=== PATIENT | female | born 1950 | race Caucasian/White ===

== ENCOUNTER 2019-08-06 09:33 | Emergency (ER) | payer MEDICARE, BC ==
[2019-08-06] MEDS ORDERED: Fentanyl 100 MCG/2 ML VIAL ONE (10:12)
[2019-08-06] MEDS ORDERED: Diazepam 5 MG TAB ONE (10:12)
[2019-08-06] MEDS ORDERED: Dexamethasone 4 mg/ml Vial ONE (10:13)
[2019-08-06] MEDS ORDERED: Ketorolac Tromethamine 60 MG/2 ML VIAL ONE (10:13)
[2019-08-06] MEDS ORDERED: Dexamethasone 4 MG TAB ONE (10:14)
== END 2019-08-06 10:54 | disposition home or self-care (01) ==
LOC: MADERS 09:33
DX: M62.830 Muscle spasm of back (principal); E78.00 Pure hypercholesterolemia, unspecified; E78.5 Hyperlipidemia, unspecified; F32.9 Major depressive disorder, single episode, unspecified; K58.9 Irritable bowel syndrome, unspecified; Z79.891 Long term (current) use of opiate analgesic; Z79.899 Other long term (current) drug therapy
CPT/HCPCS: 96372; 99283; J1100; J1885; J3010; J8540

== ENCOUNTER 2019-11-15 13:13 | Emergency (ER) | payer MEDICARE, BC ==
[2019-11-15] MEDS ORDERED: Ketorolac Tromethamine 30 MG/ML VIAL ONE (13:18)
== END 2019-11-15 14:00 | disposition home or self-care (01) ==
LOC: MADERS 13:13
DX: M62.830 Muscle spasm of back (principal); G89.29 Other chronic pain; E78.5 Hyperlipidemia, unspecified; E78.00 Pure hypercholesterolemia, unspecified; I10 Essential (primary) hypertension; F32.9 Major depressive disorder, single episode, unspecified
CPT/HCPCS: 96374; J1885

== ENCOUNTER 2020-10-23 14:59 | Emergency (ER) | payer MEDICARE, BC ==
[2020-10-23 16:58] LABS: SARS-CoV-2 NAA Rapid Test Not Detected (NotDetected)
== END 2020-10-23 17:47 | disposition home or self-care (01) ==
LOC: MADERS 14:59
DX: J20.9 Acute bronchitis, unspecified (principal); Z20.822 Contact with and (suspected) exposure to COVID-19; E78.5 Hyperlipidemia, unspecified; E78.00 Pure hypercholesterolemia, unspecified; K58.9 Irritable bowel syndrome, unspecified; I10 Essential (primary) hypertension; Z79.899 Other long term (current) drug therapy
CPT/HCPCS: 0241U; 71045; 93005